=== PATIENT | female | born 1960 | race Caucasian/White ===

== ENCOUNTER 2017-03-12 22:43 | Emergency (ER) | payer MEDICAID ==
[2017-03-12 23:13] VITALS: BP 151/93
--- NOTE | 2017-03-12 23:58 | EDM.PDOC ---
[id number] INFECTION? Time Seen by Provider: 03/12/17 23:30 Source of Information: Reports: Patient History Limitations: Reports: No Limitations - History of Present Illness INITIAL COMMENTS - FREE TEXT/NARRATIVE: 56-year-old female with nasal congestion, pressure, pressure in ears and a scratchy throat for the past 2-3 days. No cough, but has a low-grade fever. Onset: Gradual (Over the last several days) Location: Reports: Head, Face Severity: Moderate Improves with: Reports: None Associated Symptoms: Reports: Fever/Chills (Low-grade fever), Malaise. Denies: Cough, Nausea/Vomiting, Shortness of Breath head/sinuses Pain Score (Numeric/FACES): 7 - Related Data Allergies Allergy/AdvReac Type Severity Reaction Status Date / Time latex Allergy Severe Swelling Verified 03/12/17 23:33 acetaminophen [From Percocet] Allergy Nausea and Verified 03/12/17 23:33 Vomiting naproxen [From Naprosyn] Allergy Vomiting Verified 03/12/17 23:33 oxycodone HCl [From Percocet] Allergy Nausea and Verified 03/12/17 23:33 Vomiting propoxyphene HCl Allergy Hallucinati Verified 03/12/17 23:33 [From Darvon] ons Sulfa (Sulfonamide Allergy Rash Verified 03/12/17 23:33 Antibiotics) Home Meds: Home Meds Omeprazole [Prilosec] 40 mg PO DAILY PRN 06/30/14 [History] Past Medical History - Past Health History Medical/Surgical History: Denies Medical/Surgical History HEENT History: Reports: Impaired Vision Gastrointestinal History: Reports: GERD 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 heal fracture - Infectious Disease History Infectious Disease History: Reports: Chicken Pox, Shingles - Past Surgical History Female Surgical History: Reports: Hysterectomy Social & Family History - Tobacco Use Smoking Status *Q: Current Every Day Smoker Years of Tobacco use: 20 Packs/Tins Daily: 0.5 Used Tobacco, but Quit: No Second Hand Smoke Exposure: Yes - Caffeine Use Caffeine Use: Reports: Tea - Alcohol Use Days Per Week of Alcohol Use: 2 Number of Drinks Per Day: 2 Total Drinks Per Week: 4 - Recreational Drug Use Recreational Drug Use: No ED ROS ENT - Review of Systems Review Of Systems: See Below Constitutional: Reports: Fever, Malaise HEENT: Reports: Rhinitis, Sinus Problem (Pressure) Respiratory: Denies: Shortness of Breath, Cough Cardiovascular: Denies: Chest Pain GI/Abdominal: Denies: Abdominal Pain Skin: Reports: No Symptoms Neurological: Reports: Headache ED EXAM, ENT - Physical Exam Exam: See Below Exam Limited By: No Limitations General Appearance: Alert, No Apparent Distress Eye Exam: Bilateral Eye: EOMI, Normal Inspection Ears: Normal TMs Nose: Other (Some erythema and bogginess of the turbinates) Mouth/Throat: Normal Inspection Head: Atraumatic Respiratory/Chest: No Respiratory Distress, Lungs Clear Cardiovascular: Regular Rate, Rhythm Neurological: Alert, Oriented Psychiatric: Normal Affect, Normal Mood Skin: Warm, Dry Course - Vital Signs Last Recorded V/S: Last Vital Signs Temp 96.8 F 03/12/17 23:12 Pulse 88 03/12/17 23:12 Resp 14 03/12/17 23:12 BP 151/93 H 03/12/17 23:12 Pulse Ox 98 03/12/17 23:12 - Re-Assessments/Exams Free Text/Narrative Re-Assessment/Exam: 03/13/17 01:03 Patient will be treated with 100 mg of doxycycline twice a day along with 50 mg of prednisone daily for 2-6 days. She'll recheck in 2-3 days if not improving satisfactorily. Departure - Departure Time of Disposition: 00:13 Disposition: Home, Self-Care 01 Condition: good Clinical Impression: Sinusitis Qualifiers: Sinusitis location: unspecified location Chronicity: acute Recurrence: recurrent Qualified Code(s): J01.91 - Acute recurrent sinusitis, unspecified Allergic rhinitis Qualifiers: Chronicity: acute Allergic rhinitis trigger: pollen - Discharge Information Instructions: Allergies, [id number], Sinusitis, Adult, [id number] Referrals: Malik Johnson MD [Primary Care Provider] - Forms: ED Department Discharge Care Plan Goals: Take 5 pills of prednisone daily with food with your first meal of the day for 3 -6 days. Take antibiotic twice daily as prescribed, starting tonight. Recheck in 2-3 days if not improving satisfactorily.
== END 2017-03-13 00:13 | disposition home or self-care (01) ==
LOC: JP.ED 22:43
DX: J01.91 Acute recurrent sinusitis, unspecified (principal); J30.1 Allergic rhinitis due to pollen; K21.9 Gastro-esophageal reflux disease without esophagitis; F17.210 Nicotine dependence, cigarettes, uncomplicated; Z90.710 Acquired absence of both cervix and uterus; Z98.890 Other specified postprocedural states; Z79.899 Other long term (current) drug therapy; Z88.2 Allergy status to sulfonamides; Z88.8 Allergy status to other drugs, medicaments and biological substances; Z91.040 Latex allergy status
CPT/HCPCS: 99283

== ENCOUNTER 2017-07-19 16:12 | Emergency (ER) | payer MEDICAID ==
[2017-07-19 17:10] VITALS: BP 145/90
--- NOTE | 2017-07-19 18:10 | EDM.PDOC ---
ED HPI GENERAL MEDICAL PROBLEM - General Chief Complaint: Back Pain or Injury Stated Complaint: RT SIDE/RIB PAIN Time Seen by Provider: 07/19/17 17:20 Source of Information: Reports: Patient History Limitations: Reports: No Limitations - History of Present Illness INITIAL COMMENTS - FREE TEXT/NARRATIVE: 56-year-old female who fell a week ago under her right side, has been having persistent right-sided chest pain but seems to be getting worse and feels a pressure on her lateral right chest. She has pain with movement and with breathing. No fevers or chills, no significant cough. The pain is fairly localized to the right lateral and lower chest wall. No other injury or complaints. Onset: Sudden Duration: Day(s): (7 days ago) Location: Reports: Chest Severity: Moderate Improves with: Reports: Rest (Rest seems to help) Worsens with: Reports: Breathing, Other (Any direct contact to the sore area causes increased pain), Movement Associated Symptoms: Reports: No Other Symptoms. Denies: Fever/Chills, Loss of Appetite, Shortness of Breath right;rib Pain Score (Numeric/FACES): 6 - Related Data Allergies Allergy/AdvReac Type Severity Reaction Status Date / Time latex Allergy Severe Swelling Verified 07/19/17 17:11 acetaminophen [From Percocet] Allergy Nausea and Verified 07/19/17 17:11 Vomiting naproxen [From Naprosyn] Allergy Vomiting Verified 07/19/17 17:11 oxycodone HCl [From Percocet] Allergy Nausea and Verified 07/19/17 17:11 Vomiting propoxyphene HCl Allergy Hallucinati Verified 07/19/17 17:11 [From Darvon] ons Sulfa (Sulfonamide Allergy Rash Verified 07/19/17 17:11 Antibiotics) Home Meds: Home Meds Omeprazole [Prilosec] 40 mg PO DAILY PRN 06/30/14 [History] Past Medical History - Past Health History Medical/Surgical History: Denies Medical/Surgical History HEENT History: Reports: Impaired Vision 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 heal fracture - Infectious Disease History Infectious Disease History: Reports: Chicken Pox, Shingles - Past Surgical History Female Surgical History: Reports: Hysterectomy Social & Family History - Tobacco Use Smoking Status *Q: Current Every Day Smoker Years of Tobacco use: 20 Packs/Tins Daily: 0.5 Used Tobacco, but Quit: No Second Hand Smoke Exposure: Yes - Caffeine Use Caffeine Use: Reports: Tea - Alcohol Use Days Per Week of Alcohol Use: 2 Number of Drinks Per Day: 2 Total Drinks Per Week: 4 - Recreational Drug Use Recreational Drug Use: No ED ROS GENERAL - Review of Systems Review Of Systems: See Below Constitutional: Reports: No Symptoms HEENT: Reports: No Symptoms Respiratory: Reports: Pleuritic Chest Pain Cardiovascular: Reports: Chest Pain GI/Abdominal: Denies: Abdominal Pain, Nausea, Vomiting : Reports: No Symptoms Musculoskeletal: Reports: No Symptoms Skin: Denies: Bruising Neurological: Reports: No Symptoms Psychiatric: Reports: No Symptoms ED EXAM, GENERAL - Physical Exam Exam: See Below Exam Limited By: No Limitations General Appearance: Alert, No Apparent Distress (Patient is comfortable and still, marked increased pain with movement or breathing) Respiratory/Chest: No Respiratory Distress, Lungs Clear, Other (She has exquisite tenderness to palpation over the lateral right lower ribs, no crepitus. I do feel some movement or instability at the costochondral junction correlating with her pain) Cardiovascular: Regular Rate, Rhythm Neurological: Alert, Oriented, No Motor/Sensory Deficits Skin Exam: Warm, Dry Course - Vital Signs Last Recorded V/S: Last Vital Signs Temp 97.0 F 07/19/17 17:10 Pulse 94 07/19/17 17:10 Resp 16 07/19/17 17:10 BP 145/90 H 07/19/17 17:10 Pulse Ox 98 07/19/17 17:10 - Re-Assessments/Exams Free Text/Narrative Re-Assessment/Exam: 07/19/17 18:[address] scan of the chest without contrast was obtained. 07/19/17 18:42 CT scan was normal for the right side of the chest wall. A possible subtle left rib fracture was present to correlate with pain, however did not fit with her injury pattern. She likely has a costochondral disruption of the right lower chest. She was given 2 six-inch Melchor wraps to use for support while awake and active, and should recheck in the next 2-4 days if not improving satisfactorily. Continue with anti-inflammatories. Departure - Departure Time of Disposition: 19:07 Disposition: Home, Self-Care Condition: Good Clinical Impression: Acute chest wall pain Costochondral separation Qualifiers: Encounter type: initial encounter Qualified Code(s): S23.29XA - Dislocation of other parts of thorax, initial encounter - Discharge Information Instructions: Chest Wall Pain, [id number] Referrals: Malik Johnson MD [Primary Care Provider] - Forms: ED Department Discharge Care Plan Goals: A regular dose of ibuprofen or naproxen, wrapping for comfort while awake and increase activity as tolerated. Return if worsening or concerns at any time. Consider rechecking in 5-7 days if not improving
== END 2017-07-19 19:07 | disposition home or self-care (01) ==
LOC: JP.ED 16:12
DX: S23.29XA Dislocation of other parts of thorax, initial encounter (principal); F17.210 Nicotine dependence, cigarettes, uncomplicated; K21.9 Gastro-esophageal reflux disease without esophagitis; Z90.710 Acquired absence of both cervix and uterus; Z79.899 Other long term (current) drug therapy; Z88.6 Allergy status to analgesic agent; Z88.8 Allergy status to other drugs, medicaments and biological substances; Z91.040 Latex allergy status; Z88.2 Allergy status to sulfonamides; W19.XXXA Unspecified fall, initial encounter
CPT/HCPCS: 71250; 99284-25

== ENCOUNTER 2017-11-21 16:30 | Emergency (ER) | payer MEDICAID ==
[2017-11-21 16:43] VITALS: BP 151/89
--- NOTE | 2017-11-21 17:28 | EDM.PDOC ---
ED HPI GENERAL MEDICAL PROBLEM - General Chief Complaint: General Stated Complaint: FLU LIKE SYMPTOMS Time Seen by Provider: 11/21/17 17:00 Source of Information: Reports: Patient History Limitations: Reports: No Limitations - History of Present Illness INITIAL COMMENTS - FREE TEXT/NARRATIVE: 57-year-old female with a respiratory flulike syndrome for the past 5 days. She' s had facial pressure, headaches, generalized malaise, it started last 5 days ago and she slept for a day and a half. She still has body aches but the cough has improved. She thought she should be improving more by now, went to the clinic to be checked for influenza and they sent her over here because the clinic is "so busy". Denies nausea or vomiting. Still feels chills off-and-on. Onset: Gradual Duration: Day(s): (5 days of symptoms) Severity: Moderate Associated Symptoms: Reports: Cough, Fever/Chills, Headaches, Malaise, Weakness , Other (Sore throat). Denies: Chest Pain Generalized Pain Score (Numeric/FACES): 7 - Related Data Allergies Allergy/AdvReac Type Severity Reaction Status Date / Time latex Allergy Severe Swelling Verified 07/19/17 17:11 acetaminophen [From Percocet] Allergy Nausea and Verified 07/19/17 17:11 Vomiting naproxen [From Naprosyn] Allergy Vomiting Verified 07/19/17 17:11 oxycodone HCl [From Percocet] Allergy Nausea and Verified 07/19/17 17:11 Vomiting propoxyphene HCl Allergy Hallucinati Verified 07/19/17 17:11 [From Darvon] ons Sulfa (Sulfonamide Allergy Rash Verified 07/19/17 17:11 Antibiotics) Home Meds: Home Meds Omeprazole [Prilosec] 40 mg PO DAILY PRN 06/30/14 [History] Past Medical History - Past Health History Medical/Surgical History: Denies Medical/Surgical History HEENT History: Reports: Impaired Vision 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 heal fracture - Infectious Disease History Infectious Disease History: Reports: Chicken Pox - Past Surgical History Female Surgical History: Reports: Hysterectomy Social & Family History - Tobacco Use Smoking Status *Q: Current Every Day Smoker Years of Tobacco use: 40 Packs/Tins Daily: 0.5 Used Tobacco, but Quit: No Second Hand Smoke Exposure: Yes - Caffeine Use Caffeine Use: Reports: Tea - Alcohol Use Days Per Week of Alcohol Use: 2 Number of Drinks Per Day: 2 Total Drinks Per Week: 4 - Recreational Drug Use Recreational Drug Use: No ED ROS GENERAL - Review of Systems Review Of Systems: See Below Constitutional: Reports: Fever, Chills, Malaise, Weakness, Decreased Appetite HEENT: Reports: Rhinitis (Facial pressure), Throat Pain Respiratory: Reports: Shortness of Breath, Cough. Denies: Sputum Cardiovascular: Denies: Chest Pain Endocrine: Reports: Fatigue GI/Abdominal: Reports: Decreased Appetite. Denies: Abdominal Pain, Nausea, Vomiting : Reports: No Symptoms Musculoskeletal: Reports: Muscle Pain (Hurts all over) Skin: Reports: No Symptoms (No rash) ED EXAM, GENERAL - Physical Exam Exam: See Below Exam Limited By: No Limitations General Appearance: Alert, No Apparent Distress Eye Exam: Bilateral Eye: Normal Inspection Throat/Mouth: Other (Fairly significant pharyngeal erythema, no exudate) Head: Atraumatic Neck: No: Lymphadenopathy (R), Lymphadenopathy (L) Respiratory/Chest: No Respiratory Distress, Lungs Clear Cardiovascular: Regular Rate, Rhythm Extremities: No: Pedal Edema Neurological: Alert, Oriented Psychiatric: Normal Affect, Normal Mood Skin Exam: Warm, Dry Course - Vital Signs Last Recorded V/S: Last Vital Signs Temp 97.9 F 11/21/17 16:41 Pulse 107 H 11/21/17 16:41 Resp 16 11/21/17 16:41 BP 151/89 H 11/21/17 16:41 Pulse Ox 96 11/21/17 16:41 - Orders/Labs/Meds Orders: Active Orders 24 hr Category Date Time Status CULTURE STREP A CONFIRMATION [RM] Routine Lab 11/21/17 17:04 Results STREP SCRN A RAPID W CULT CONF [RM] Routine Lab 11/21/17 17:04 Results - Re-Assessments/Exams Free Text/Narrative Re-Assessment/Exam: 11/21/17 17:28 A rapid strep was obtained as well as influenza antigens. 11/21/17 18:00 Rapid strep and influences were both negative. Patient was started on amoxicillin 500 mg 3 times daily and also given Tessalon Perles for cough suppression. She will recheck in 2-3 days if not improving satisfactorily. Departure - Departure Time of Disposition: 18:20 Disposition: Home, Self-Care 01 Condition: Good Clinical Impression: Bronchitis Sinusitis, acute Qualifiers: Sinusitis location: ethmoidal Recurrence: non-recurrent Qualified Code(s): J01.20 - Acute ethmoidal sinusitis, unspecified - Discharge Information Instructions: Acute Bronchitis, [id number] Referrals: Malik Johnson MD [Primary Care Provider] - Forms: ED Department Discharge Care Plan Goals: Take medication as prescribed, get rest for the next 36 hours and then increase activity as tolerated. Return anytime if worsening such as fever or shortness of breath. - My Orders Last 24 Hours: My Active Orders 11/21/17 17:04 CULTURE STREP A CONFIRMATION [RM] Routine STREP SCRN A RAPID W CULT CONF [] Routine - Assessment/Plan Last 24 Hours: My Active Orders 11/21/17 17:04 CULTURE STREP A CONFIRMATION [RM] Routine STREP SCRN A RAPID W CULT CONF [] Routine
== END 2017-11-21 18:21 | disposition home or self-care (01) ==
LOC: JP.ED 16:30
DX: J40 Bronchitis, not specified as acute or chronic (principal); J01.20 Acute ethmoidal sinusitis, unspecified; F17.210 Nicotine dependence, cigarettes, uncomplicated; K21.9 Gastro-esophageal reflux disease without esophagitis; Z79.899 Other long term (current) drug therapy; Z88.2 Allergy status to sulfonamides; Z91.040 Latex allergy status; Z88.8 Allergy status to other drugs, medicaments and biological substances
CPT/HCPCS: 87081; 87430; 87804; 99284

== ENCOUNTER 2018-03-20 13:44 | Emergency (ER) | payer MEDICAID ==
[2018-03-20 16:17] VITALS: BP 154/91
--- NOTE | 2018-03-20 16:35 | EDM.PDOC ---
ED HPI GENERAL MEDICAL PROBLEM - General Chief Complaint: ENT Problem Stated Complaint: TOOTH PAIN Time Seen by Provider: 03/20/18 16:31 Source of Information: Reports: Patient History Limitations: Reports: No Limitations - History of Present Illness INITIAL COMMENTS - FREE TEXT/NARRATIVE: pt has a painful rt lower molar thatr is abcessed. She is not able to get in to her regular denist. Onset: Gradual, Other ( Severe pain for the past 2 days. She has more swelling today. ) Duration: Hour(s): Location: Reports: Face Associated Symptoms: Reports: No Other Symptoms Right Tooth/Teeth Pain Score (Numeric/FACES): 6 - Related Data Allergies Allergy/AdvReac Type Severity Reaction Status Date / Time latex Allergy Severe Swelling Verified 03/20/18 16:23 acetaminophen [From Percocet] Allergy Nausea and Verified 03/20/18 16:23 Vomiting naproxen [From Naprosyn] Allergy Vomiting Verified 03/20/18 16:23 oxycodone HCl [From Percocet] Allergy Nausea and Verified 03/20/18 16:23 Vomiting propoxyphene HCl Allergy Hallucinati Verified 03/20/18 16:23 [From Darvon] ons Sulfa (Sulfonamide Allergy Rash Verified 03/20/18 16:23 Antibiotics) Home Meds: Home Meds Omeprazole [Prilosec] 40 mg PO DAILY PRN 06/30/14 [History] Cyanocobalamin (Vitamin B-12) [B-12] 5,000 mcg SL DAILY 03/20/18 [History] Ibuprofen [Advil] 200 mg PO Q6H PRN 03/20/18 [History] Past Medical History - Past Health History Medical/Surgical History: Denies Medical/Surgical History HEENT History: Reports: Impaired Vision 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 heal fracture - Infectious Disease History Infectious Disease History: Reports: Chicken Pox - Past Surgical History Female Surgical History: Reports: Hysterectomy Musculoskeletal Surgical History: Reports: Arthroscopic Knee Social & Family History - Tobacco Use Smoking Status *Q: Current Every Day Smoker Years of Tobacco use: 20 Packs/Tins Daily: 0.3 - Caffeine Use Caffeine Use: Reports: Tea - Recreational Drug Use Recreational Drug Use: No ED ROS ENT - Review of Systems Review Of Systems: See Below Constitutional: Reports: No Symptoms HEENT: Reports: Dental Pain Respiratory: Reports: No Symptoms Cardiovascular: Reports: No Symptoms Endocrine: Reports: No Symptoms GI/Abdominal: Reports: No Symptoms : Reports: No Symptoms ED EXAM, ENT - Physical Exam Exam: See Below Text/Narrative:: pt has pain and swelling in the rt lower gum line. She noted alot more swelling today. Exam Limited By: No Limitations General Appearance: Alert, Anxious Ears: Normal TMs Nose: Normal Inspection Mouth/Throat: Dental Abcess, Dental Tenderness, Other (pt has swelling along the lower jaw. ) Head: Atraumatic Neck: Normal Inspection Respiratory/Chest: No Respiratory Distress Course - Vital Signs Last Recorded V/S: Last Vital Signs Temp 36.8 C 03/20/18 16:26 Pulse 81 03/20/18 16:26 Resp 16 03/20/18 16:26 BP 154/91 H 03/20/18 16:26 Pulse Ox 99 03/20/18 16:26 Departure - Departure Time of Disposition: 16:33 Disposition: Home, Self-Care 01 Condition: Fair Clinical Impression: Tooth abscess - Discharge Information Referrals: Malik Johnson MD [Primary Care Provider] - Forms: ED Department Discharge Care Plan Goals: clindomycin 300ng tid, tylenol and motrin for pain. She did not want other pain meds, dental referal
== END 2018-03-20 16:43 | disposition home or self-care (01) ==
LOC: JP.ED 13:44
DX: K04.7 Periapical abscess without sinus (principal); K21.9 Gastro-esophageal reflux disease without esophagitis; F17.210 Nicotine dependence, cigarettes, uncomplicated; Z91.040 Latex allergy status; Z88.6 Allergy status to analgesic agent; Z88.5 Allergy status to narcotic agent; Z88.2 Allergy status to sulfonamides; Z79.899 Other long term (current) drug therapy
CPT/HCPCS: 99283

== ENCOUNTER 2019-12-23 16:07 | Emergency (ER) | payer MEDICAID ==
[2019-12-23 16:33] VITALS: BP 165/99; PULSE 91
--- NOTE | 2019-12-23 17:05 | EDM.PDOC ---
ED HPI GENERAL MEDICAL PROBLEM - General Chief Complaint: ENT Problem Stated Complaint: MEDICAL Time Seen by Provider: 12/23/19 16:57 Source of Information: Reports: Patient History Limitations: Reports: No Limitations - History of Present Illness Onset: Gradual Duration: Day(s): (2) Location: Reports: Face Quality: Reports: Ache, Dull, Pressure Severity: Mild Improves with: Reports: None Worsens with: Reports: None - Related Data Allergies Allergy/AdvReac Type Severity Reaction Status Date / Time latex Allergy Severe Swelling Verified 12/23/19 16:21 acetaminophen [From Percocet] Allergy Nausea and Verified 12/23/19 16:21 Vomiting naproxen [From Naprosyn] Allergy Vomiting Verified 12/23/19 16:21 oxycodone HCl [From Percocet] Allergy Nausea and Verified 12/23/19 16:21 Vomiting propoxyphene HCl Allergy Hallucinati Verified 12/23/19 16:21 [From Darvon] ons Sulfa (Sulfonamide Allergy Rash Verified 12/23/19 16:21 Antibiotics) Home Meds: Home Meds Omeprazole [Prilosec] 40 mg PO DAILY PRN 06/30/14 [History] Cyanocobalamin (Vitamin B-12) [B-12] 5,000 mcg SL DAILY 03/20/18 [History] Ibuprofen [Advil] 200 mg PO Q6H PRN 03/20/18 [History] Past Medical History - Past Health History Medical/Surgical History: Denies Medical/Surgical History HEENT History: Reports: Impaired Vision 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 heal fracture - Infectious Disease History Infectious Disease History: Reports: Chicken Pox - Past Surgical History Female Surgical History: Reports: Hysterectomy Musculoskeletal Surgical History: Reports: Arthroscopic Knee Social & Family History - Tobacco Use Smoking Status *Q: Current Every Day Smoker Years of Tobacco use: 35 Packs/Tins Daily: 0.3 - Caffeine Use Caffeine Use: Reports: Tea ED ROS ENT - Review of Systems Review Of Systems: See Below Constitutional: Reports: Fatigue. Denies: Fever, Chills HEENT: Reports: Rhinitis, Sinus Problem. Denies: Nosebleed, Throat Pain Respiratory: Denies: Shortness of Breath Endocrine: Reports: Fatigue GI/Abdominal: Reports: No Symptoms Musculoskeletal: Reports: No Symptoms ED EXAM, ENT - Physical Exam Exam: See Below Exam Limited By: No Limitations General Appearance: Alert, Mild Distress Nose: Nasal Discharge, Nasal Swelling. No: Active Bleeding, Dried Blood Mouth/Throat: No: Pharyngeal Erythema Respiratory/Chest: Lungs Clear Cardiovascular: Regular Rate, Rhythm Course - Vital Signs Last Recorded V/S: Last Vital Signs Temp 36.5 C 12/23/19 16:30 Pulse 91 12/23/19 16:30 Resp 14 12/23/19 16:30 BP 165/99 H 12/23/19 16:30 Pulse Ox 98 12/23/19 16:30 - Orders/Labs/Meds Orders: Active Orders 24 hr Category Date Time Status CULTURE STREP A CONFIRMATION [RM] Stat Lab 12/23/19 16:22 Results STREP SCRN A RAPID W CULT CONF [RM] Stat Lab 12/23/19 16:22 Results - Re-Assessments/Exams Free Text/Narrative Re-Assessment/Exam: 12/23/19 21:30 Patient was sent with a prescription for doxycycline 100 mg, 14 tablets; use as directed. She should continue usual previously successful nasal and sinus clearing procedures. Recheck with primary care if not improved in one week. Departure - Departure Time of Disposition: 17:14 Disposition: Home, Self-Care 01 Condition: Good Clinical Impression: Sinusitis Qualifiers: Sinusitis location: maxillary Chronicity: acute Recurrence: non-recurrent Qualified Code(s): J01.00 - Acute maxillary sinusitis, unspecified - Discharge Information *PRESCRIPTION DRUG MONITORING PROGRAM REVIEWED*: Not Applicable *COPY OF PRESCRIPTION DRUG MONITORING REPORT IN PATIENT BETSY: Not Applicable Instructions: Sinusitis, Adult, [id number] Referrals: Gisell Pruitt MD [Primary Care Provider] - Forms: ED Department Discharge Additional Instructions: Use decongestants to reduce sinus congestion. Start antibiotic. Ensure adequate fluid intake. Recheck in clinic if not improved in 7 days. Sepsis Event Note - Evaluation Sepsis Screening Result: Possible Sepsis Risk - Focused Exam Vital Signs: Vital Signs Temp Pulse Resp BP Pulse Ox 12/23/19 16:30 36.5 C 91 14 165/99 H 98 Date Exam was Performed: 12/23/19 Time Exam was Performed: 21:29 - My Orders Last 24 Hours: My Active Orders 12/23/19 16:22 CULTURE STREP A CONFIRMATION [RM] Stat STREP SCRN A RAPID W CULT CONF [RM] Stat - Assessment/Plan Last 24 Hours: My Active Orders 12/23/19 16:22 CULTURE STREP A CONFIRMATION [RM] Stat STREP SCRN A RAPID W CULT CONF [RM] Stat
== END 2019-12-23 17:37 | disposition home or self-care (01) ==
LOC: JP.ED 16:07
DX: J01.00 Acute maxillary sinusitis, unspecified (principal); F17.210 Nicotine dependence, cigarettes, uncomplicated; K21.9 Gastro-esophageal reflux disease without esophagitis; Z91.040 Latex allergy status; Z88.5 Allergy status to narcotic agent; Z88.2 Allergy status to sulfonamides; Z79.899 Other long term (current) drug therapy
CPT/HCPCS: 87081; 87880-QW; 99283

== ENCOUNTER 2020-12-14 17:56 | Emergency (ER) | payer MEDICAID ==
[2020-12-14 18:07] VITALS: BP 163/92; PULSE 103
--- NOTE | 2020-12-14 18:28 | EDM.PDOC ---
ED HPI GENERAL MEDICAL PROBLEM - General Chief Complaint: Respiratory Problem Stated Complaint: CHEST CONGESTION,LEGARGIC Time Seen by Provider: 12/14/20 18:10 Source of Information: Reports: Patient History Limitations: Reports: No Limitations - History of Present Illness INITIAL COMMENTS - FREE TEXT/NARRATIVE: 60-year-old female with sinus congestion and cough, malaise and body aches for the past week and a half. She thought it was her yearly sinus infections so went into the clinic and got put on doxycycline. It has been a week and she is not feeling better, she called the nurse hotline and they recommended she come to the emergency room. No fevers or chills. They did test her for Covid last week and it was negative. Onset: Gradual Duration: Day(s): (10 days) Associated Symptoms: Reports: Cough, Malaise, Weakness, Other (Generalized muscle aches, headache) - Related Data Allergies Allergy/AdvReac Type Severity Reaction Status Date / Time latex Allergy Severe Swelling Verified 12/14/20 18:07 acetaminophen [From Percocet] Allergy Nausea and Verified 12/14/20 18:07 Vomiting diphenhydramine Allergy Rash Verified 12/14/20 18:11 [From Benadryl] naproxen [From Naprosyn] Allergy Vomiting Verified 12/14/20 18:07 oxycodone HCl [From Percocet] Allergy Nausea and Verified 12/14/20 18:07 Vomiting propoxyphene HCl Allergy Hallucinati Verified 12/14/20 18:07 [From Darvon] ons Sulfa (Sulfonamide Allergy Rash Verified 12/14/20 18:07 Antibiotics) Home Meds: Home Meds Omeprazole [Prilosec] 40 mg PO DAILY 06/30/14 [History] Cyanocobalamin (Vitamin B-12) [B-12] 5,000 mcg SL DAILY 03/20/18 [History] Ibuprofen [Advil] 200 mg PO Q6H PRN 03/20/18 [History] Acetaminophen [Tylenol] 500 mg PO Q4H PRN 12/14/20 [History] Doxycycline [Doxycycline Hyclate] 100 mg PO BID 12/14/20 [History] EPINEPHrine [Auvi-Q] 0.3 mg IJ ASDIRECTED PRN 12/14/20 [History] Past Medical History - Past Health History Medical/Surgical History: Denies Medical/Surgical History HEENT History: Reports: Impaired Vision Gastrointestinal History: Reports: GERD Genitourinary History: Reports: None 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 heal fracture - Infectious Disease History Infectious Disease History: Reports: Chicken Pox - Past Surgical History Head Surgeries/Procedures: Reports: None HEENT Surgical History: Reports: None GI Surgical History: Reports: None Female Surgical History: Reports: Hysterectomy Musculoskeletal Surgical History: Reports: Arthroscopic Knee Dermatological Surgical History: Reports: None Social & Family History - Tobacco Use Tobacco Use Status *Q: Current Every Day Tobacco User Years of Tobacco use: 30 Packs/Tins Daily: 0.6 Used Tobacco, but Quit: No Second Hand Smoke Exposure: No - Caffeine Use Caffeine Use: Reports: Tea - Recreational Drug Use Recreational Drug Use: No ED ROS GENERAL - Review of Systems Review Of Systems: See Below Constitutional: Reports: Chills, Malaise HEENT: Reports: Ear Pain (Ear pressure bilaterally), Sinus Problem (Lots of sinus pressure) Respiratory: Reports: Cough. Denies: Shortness of Breath Cardiovascular: Denies: Chest Pain Endocrine: Reports: Fatigue GI/Abdominal: Denies: Nausea, Vomiting Skin: Reports: No Symptoms Neurological: Reports: Headache ED EXAM, GENERAL - Physical Exam Exam: See Below Exam Limited By: No Limitations General Appearance: Alert, No Apparent Distress Eye Exam: Bilateral Eye: Normal Inspection Ears: Normal TMs, Other (No effusions) Head: Atraumatic Neck: No: Lymphadenopathy (R), Lymphadenopathy (L) Respiratory/Chest: No Respiratory Distress, Lungs Clear, Other (Decreased breath sounds on the left side but no abnormal sounds heard) Cardiovascular: Regular Rate, Rhythm Extremities: Normal Inspection Neurological: Alert, Oriented Psychiatric: Normal Affect, Normal Mood Skin Exam: Warm, Dry Course - Vital Signs Last Recorded V/S: Last Vital Signs Temp 97.4 F 12/14/20 18:11 Pulse 103 H 12/14/20 18:11 Resp 16 12/14/20 18:11 BP 163/92 H 12/14/20 18:11 Pulse Ox 97 12/14/20 18:11 - Orders/Labs/Meds Orders: Active Orders 24 hr Category Date Time Status Chest 2V [CR] Routine Exams 12/14/20 18:23 Taken Labs: Laboratory Tests 12/14/20 Range/Units 18:24 Influenza Type A RNA Negative (NEGATIVE) RSV RNA (INAAT) Negative (NEGATIVE) Influenza Type B RNA Negative (NEGATIVE) SARS-CoV-2 RNA (DENISA) Negative (NEGATIVE) - Re-Assessments/Exams Free Text/Narrative Re-Assessment/Exam: 12/14/20 18:28 Because of the persistent symptoms and decreased breath sounds on the left side, 2 view chest x-ray will be obtained. She did not get influenza vaccines so a 4 Plex viral screen will be obtained as well. 12/14/20 18:41 Chest x-ray shows some chronic scattered small nodules and COPD changes, no confluent infiltrate, effusions or hemothorax. 12/14/20 19:15 Viral studies are still pending but the patient wanted to leave. We will call her with any positive results. She was placed on a tapering course of prednis one which she can take along with her doxycycline and recheck as needed. 12/14/20 20:26 All 4 virus studies were negative, this was communicated to the patient. Departure - Departure Time of Disposition: 19:21 Disposition: Home, Self-Care 01 Clinical Impression: Bronchitis - Discharge Information Instructions: Acute Bronchitis, Adult, [id number] Referrals: Gisell Pruitt MD [Primary Care Provider] - Forms: ED Department Discharge Care Plan Goals: Continue with the antibiotic until gone, take prednisone as prescribed with the full dose daily at one time with food. Return anytime if worsening despite treatment, or consider rechecking in 5 to 7 days if not improving satisfactorily. We will call you with any positive results on your viral test. Sepsis Event Note (ED) - Evaluation Sepsis Screening Result: No Definite Risk - Focused Exam Vital Signs: Vital Signs Temp Pulse Resp BP Pulse Ox 12/14/20 18:11 97.4 F 103 H 16 163/92 H 97 12/14/20 18:06 97.4 F 103 H 16 163/92 H 97 - My Orders Last 24 Hours: My Active Orders 12/14/20 18:23 Chest 2V [CR] Routine - Assessment/Plan Last 24 Hours: My Active Orders 12/14/20 18:23 Chest 2V [CR] Routine
[2020-12-14 19:13] LABS: CORONAVIRUS COVID-19 NAA NEGATIVE (NEGATIVE)
--- NOTE | 2020-12-15 09:21 | CR ---
CHEST: 2 view CLINICAL HISTORY:Dyspnea COMPARISON:CT 2019 FINDINGS: Lungs are hyperaerated. The heart size, pulmonary vascularity and hilar structures are normal. No infiltrate effusion or pneumothorax is seen. IMPRESSION: No acute cardiopulmonary process. Emphysematous changes Patient was due for screening CT lungs in November 2020
== END 2020-12-14 19:22 | disposition home or self-care (01) ==
LOC: JP.ED 17:56
DX: J40 Bronchitis, not specified as acute or chronic (principal); K21.9 Gastro-esophageal reflux disease without esophagitis; Z72.0 Tobacco use; Z88.8 Allergy status to other drugs, medicaments and biological substances; Z88.2 Allergy status to sulfonamides; Z91.040 Latex allergy status; Z88.6 Allergy status to analgesic agent; Z88.5 Allergy status to narcotic agent; Z79.899 Other long term (current) drug therapy; Z20.822 Contact with and (suspected) exposure to COVID-19
CPT/HCPCS: 0241U; 71046; 99283

== ENCOUNTER 2021-06-01 11:13 | Emergency (ER) | payer MEDICAID ==
[2021-06-01] MEDS ORDERED: Famotidine 20 MG/2 ML SDV IVPUSH ONE (11:20)
--- NOTE | 2021-06-01 11:26 | EDM.PDOC ---
ED HPI GENERAL MEDICAL PROBLEM - General Chief Complaint: Bite:Animal, Insect Stated Complaint: ALLERIC REACTION TO BEE STING Time Seen by Provider: 06/01/21 11:15 Source of Information: Reports: Patient History Limitations: Reports: No Limitations - History of Present Illness INITIAL COMMENTS - FREE TEXT/NARRATIVE: Frida is a 60 year old female whom presents to ER for acute allergic reaction to bee sting with known allergy history resulting in throat swelling in the past. Patient has an at home daycare and reports sting occurred within the last 10 minutes before arrival. Patient already self administered Epi injection with improvement of symptoms and ice pack on site of sting. Frida reports allergy to Benadryl resulting in facial and lip swelling. Frida reports no reaction to Second generation antihistamines i.e. Claritin. Frida has no secondary symptoms due to allergy reaction at time of assessment. Right Face/Facial Pain Score (Numeric/FACES): 8 - Related Data Allergies Allergy/AdvReac Type Severity Reaction Status Date / Time latex Allergy Severe Swelling Verified 12/14/20 18:07 diphenhydramine Allergy Rash Verified 12/14/20 18:11 [From Benadryl] naproxen [From Naprosyn] Allergy Vomiting Verified 12/14/20 18:07 oxycodone HCl [From Percocet] Allergy Nausea and Verified 06/01/21 13:06 Vomiting propoxyphene HCl Allergy Hallucinati Verified 12/14/20 18:07 [From Darvon] ons Sulfa (Sulfonamide Allergy Rash Verified 12/14/20 18:07 Antibiotics) Home Meds: Home Meds Omeprazole [Prilosec] 40 mg PO DAILY 06/30/14 [History] Cyanocobalamin (Vitamin B-12) [B-12] 5,000 mcg SL DAILY 03/20/18 [History] Ibuprofen [Advil] 200 mg PO Q6H PRN 03/20/18 [History] Acetaminophen [Tylenol] 500 mg PO Q4H PRN 12/14/20 [History] EPINEPHrine [Auvi-Q] 0.3 mg IJ ASDIRECTED PRN 12/14/20 [History] EPINEPHrine [Epipen 2-Jonh] 0.3 mg IJ DAILY PRN 30 Days #2 ml 06/01/21 [Rx] Famotidine [Pepcid] 20 mg PO BID 10 Days #20 tab 08/23/21 [Rx] Loratadine [Claritin] 10 mg PO DAILY PRN 15 Days #30 tab 06/01/21 [Rx] Past Medical History - Past Health History Medical/Surgical History: Denies Medical/Surgical History HEENT History: Reports: Impaired Vision Gastrointestinal History: Reports: GERD Genitourinary History: Reports: None [employer]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 heal fracture - Infectious Disease History Infectious Disease History: Reports: Chicken Pox - Past Surgical History Head Surgeries/Procedures: Reports: None HEENT Surgical History: Reports: None GI Surgical History: Reports: None Female Surgical History: Reports: Hysterectomy Musculoskeletal Surgical History: Reports: Arthroscopic Knee Dermatological Surgical History: Reports: None Social & Family History - Caffeine Use Caffeine Use: Reports: Tea ED ROS GENERAL - Review of Systems Review Of Systems: Comprehensive ROS is negative, except as noted in HPI. ED EXAM, ANIMAL BITE - Physical Exam Exam: See Below Exam Limited By: No Limitations General Appearance: Alert, WD/WN, Moderate Distress (due to concern about secondary reaction to bee stings, last reaction was over 15 years ago. ) Eye Exam: Bilateral Eye: Normal Inspection Ears: Hearing Grossly Normal Nose: Normal Mucosa Throat/Mouth: Normal Voice, No Airway Compromise Neck: Normal Inspection, Full Range of Motion Respiratory/Chest: No Respiratory Distress, Lungs Clear, Normal Breath Sounds Cardiovascular: Normal Peripheral Pulses, Regular Rate, Rhythm GI/Abdominal: Normal Bowel Sounds, Soft, Non-Tender Neurological: Alert, Oriented, CN II-XII Intact, Normal Cognition, Normal Gait Psychiatric: Normal Affect, Normal Mood Skin Exam: Normal Color, Warm/Dry Course - Vital Signs Last Recorded V/S: Last Vital Signs Temp 36.3 C 06/01/21 11:45 Pulse 83 06/01/21 12:11 Resp 16 06/01/21 11:45 BP 129/65 06/01/21 12:11 Pulse Ox 98 06/01/21 12:11 - Orders/Labs/Meds Orders: Active Orders 24 hr Category Date Time Status methylPREDNISolone Sod Succ [Solu-MEDROL] Med 06/02/21 09:00 Active 125 mg IVPUSH DAILY Medication Orders Methylprednisolone Sodium Succinate (Methylprednisolone Sodium Succinate 125 Mg/2 Ml Sdv) 125 mg IVPUSH DAILY MARQUITA Last Admin: 06/01/21 11:35 Dose: 125 mg Documented by: PREILOR Meds: Medications Generic Name Dose Route Start Last Admin Trade Name Rhoda PRN Reason Stop Dose Admin Methylprednisolone Sodium Succinate 125 mg 06/02/21 09:00 06/01/21 11:35 Methylprednisolone Sodium Succinate 125 Mg/2 Ml Sdv IVPUSH 125 mg DAILY MARQUITA Administration Discontinued Medications Generic Name Dose Route Start Last Admin Trade Name Rhoda PRN Reason Stop Dose Admin Acetaminophen 650 mg 06/01/21 13:04 Acetaminophen 325 Mg Tab PO 06/01/21 13:05 NOW ONE Famotidine 20 mg 06/01/21 11:20 06/01/21 11:38 Famotidine 20 Mg/2 Ml Sdv IVPUSH 06/01/21 11:21 20 mg ONETIME ONE Administration Loratadine 20 mg 06/01/21 11:36 06/01/21 11:49 Loratadine 10 Mg Tab PO 06/01/21 11:37 20 mg ONETIME ONE Administration Methylprednisolone Sodium Succinate Confirm 06/01/21 11:33 Methylprednisolone Sodium Succinate 125 Mg/2 Ml Sdv Administered 06/01/21 11:34 Dose 125 mg .ROUTE [facility] - Re-Assessments/Exams Free Text/Narrative Re-Assessment/Exam: Assessment immediately completed by myself and nursing staff. IV access obtained. No obvious signs of impending respiratory or vascular compromise with sting today. Allergy to Benadryl reported. IV Steroid and H2 pepcid ordered to prevent rebound reactions. Discussed with patient about being monitored in the department for the next 2 hours to ensure no recurrent reaction need for repeat dose of Epi or EPI drip. Claritin 20mg po given and new ice pack for localized swelling. 06/01/21 11:40 Departure - Departure Time of Disposition: 13:27 Disposition: Home, Self-Care 01 Clinical Impression: Insect sting allergy, current reaction - Discharge Information Prescriptions: Loratadine [Claritin] 10 mg PO DAILY PRN 15 Days #30 tab PRN Reason: Allergies EPINEPHrine [Epipen 2-Jonh] 0.3 mg IJ DAILY PRN 30 Days #2 ml PRN Reason: Allergies Famotidine [Pepcid] 20 mg PO BID 10 Days #20 tab Instructions: Allergies, Adult, Bee, Wasp, or Hornet Sting, Adult Referrals: PCP,None [Primary Care Provider] - Forms: ED Department Discharge Additional Instructions: 1. Take medications as directed for prevention of rebound reaction. Pepcid 20mge very am and pm x 5-10 days. 2. Claritin 10mg every am and pm x 5-10 days. 3. Epi pen refill prescribed #2 pens, written. 4. Apply a cool wash cloth to any areas that are itching or red. 5. May take Tylenol or Ibuprofen for pain and swelling if needed. 6. See PCP in 7-10 days if not improved. 7. Return for repeat evaluation if increase, changes, new or worsen symptoms: including swelling or the lips, wheezing, difficulty breathing or swallowing. 8. Follow Insect Bite, allergic reaction and sting information. Insect Bites and Stings: What kinds of reactions do insect bites cause? For most people, a minor insect bite or sting may cause a little swelling and itching. The site may be painful for a few hours. Mosquitoes, biting flies, and some spiders usually cause mild reactions. Yellow jackets, honeybees, paper wasps, hornets, and fire ants cause more severe sting reactions. Everyone reacts to the toxic effects of insect venom, for example, from a bee sting. Most people have mild reactions, which may appear in a few minutes or up to 48 hours after the bite or sting. Some people have insect allergies, which may cause mild to severe allergic reactions. Mildly allergic people may have hives with intense itching and pain around the site as well as eye itching. Oth ers may have blisters where they were bitten. A severe allergic reaction to a bite will happen within minutes of the bite. The symptoms may include: severe swelling of the lips, tongue, or throat trouble breathing nausea, cramping, diarrhea, or vomiting hives dizziness loss of consciousness. How are insect bites treated? If you are stung by a bee, remain calm and brush away the insect. Bees leave a stinger in your skin, but hornets, wasps, and yellow jackets typically do not. Remove a stinger within 30 seconds by scraping it with a fingernail. Do not squeeze the stinger, or it will likely release more venom. When you are bitten by a tick, remove the tick right away using fine-tipped tweezers to grasp it firmly close to the skin. Do not squeeze the tick's body. You may want to save the tick for identification in case you become ill. This may help your health care provider make an accurate diagnosis. Place the tick in a sealable plastic bag and put it in your freezer. Wash your hands after touching the tick. Wash the bite area and put an antiseptic on it. See your provider if you start having symptoms such as a rash, fever, and muscle aches, or joint pain. If you have a mild reaction to an insect bite or sting: Make a paste of 3 teaspoons baking soda and 1 teaspoon water and rub the area of the bite or sting with it. Put a cold, moist cloth or ice cubes on the bitten area. Put hydrocortisone cream, calamine lotion, or antihistamine cream on the area to help reduce itching and swelling. Elevate the bitten area, if possible, to help prevent swelling. If you are bitten by a spider or stung by a scorpion, put a cloth-covered ice pack on the area. If the scorpion or spider may be poisonous, go to the emergency room. Urgent care for a poisonous bite is especially important for children or older adults. If it can be done safely, take the spider in a jar to the emergency room, so it can be identified. If you know you are allergic to some insect stings, ask your health care provider about carrying an injection kit of epinephrine, such as EpiPen or Nury- Kit. With the kit you can give yourself a shot of medicine to counteract the allergic reaction until medical help arrives. Wear a Medic Alert ID that warns of your allergy and tells what to do in case of an emergency. Tell your family, friends, and co-workers what they should do if you have a severe allergic reaction. A severe allergic reaction is life-threatening. Call 911 immediately if someone is bit and has the symptoms of a severe reaction. If the person carries an injection kit, use it right away. Cardiopulmonary resuscitation (CPR) may be necessary. If the person has stopped breathing or his or her heart has stopped beating. How can I help prevent insect bites? Follow these guidelines to help prevent insect bites: Avoid walking barefoot or wearing open-toe shoes when outdoors. Do not wear clothing that is loose or brightly colored. Avoid perfume. Do not disturb beehives or hornet nests. Keep food and soft drinks covered, and keep garbage cans tightly covered. To avoid mosquito bites or tick bites, keep the body covered. Stay away from w here mosquitoes breed. Use an insect repellent whenever you are outdoors. Don't use more repellent than recommended in the package directions. Don't put repellent on open wounds or rashes. Do not apply it to your eyes or mouth. When using sprays, do not spray it directly on your face--spray the repellent on your hands first and then put it on your face. Wash the spray off your hands. Be careful with children because repellents can make them ill. Repellent products containing either DEET or picaridin as active ingredients have been proven to provide longer-lasting protection than others. Adults should use products with no more than 35% DEET. Children should use repellents with no more than 10% DEET. DEET should be washed off your body when you go back indoors. In some studies, oil of lemon eucalyptus, a plant-based repellent, provided as much protection as repellents with low concentrations of DEET, but it hasn't been as well tested as DEET. Oil of lemon eucalyptus should not be used on children under age 3. Picaridin is a repellent just recently made available in the [place]. It can be less irritating to the skin than DEET. Some products containing permethrin are recommended for use on clothing, shoes, bed nets, and camping gear. Permethrin is highly effective as an insecticide and as a repellent. Permethrin-treated clothing repels and kills ticks, mosquitoes, and other insects and continues to work after repeated laundering. The permethrin insecticide should be reapplied according to the label instructions. Some commercial products are available pretreated with permethrin. Don't put permethrin on your skin. It is also important to prevent the possibility of getting a tetanus infection. The skin broken by an insect bite could become infected with tetanus bacteria. You can prevent this type of infection by keeping up to date with tetanus booster shots. Developed by [employer]. Sepsis Event Note (ED) - Focused Exam Vital Signs: Vital Signs Temp Pulse Resp BP Pulse Ox 06/01/21 12:11 83 129/65 98 06/01/21 11:45 36.3 C 91 16 134/83 95 06/01/21 11:41 91 16 134/83 95 06/01/21 11:17 36.3 C 108 H 20 158/89 H 98 - My Orders Last 24 Hours: My Active Orders 06/02/21 09:00 methylPREDNISolone Sod Succ [Solu-MEDROL] 125 mg IVPUSH DAILY - Assessment/Plan Last 24 Hours: My Active Orders 06/02/21 09:00 methylPREDNISolone Sod Succ [Solu-MEDROL] 125 mg IVPUSH DAILY
[2021-06-01] MEDS ORDERED: methylPREDNISolone Sodium Succinate 125 MG/2 ML SDV ONE (11:33)
[2021-06-01] MEDS ORDERED: Loratadine 10 MG Tab PO ONE (11:36)
[2021-06-01 12:37] VITALS: BP 129/65; PULSE 83
[2021-06-01] MEDS ORDERED: Acetaminophen 325 MG Tab PO ONE (13:04)
[2021-06-02] MEDS ORDERED: methylPREDNISolone Sodium Succinate 125 MG/2 ML SDV IVPUSH SCH (09:00)
== END 2021-06-01 13:56 | disposition home or self-care (01) ==
LOC: JP.ED 11:13
DX: T63.441A Toxic effect of venom of bees, accidental (unintentional), initial encounter (principal); K21.9 Gastro-esophageal reflux disease without esophagitis; Z91.040 Latex allergy status; Z88.8 Allergy status to other drugs, medicaments and biological substances; Z88.6 Allergy status to analgesic agent; Z88.5 Allergy status to narcotic agent; Z88.2 Allergy status to sulfonamides; Z79.899 Other long term (current) drug therapy
CPT/HCPCS: 96374; 96375; 99283; A9270; J2930; J3490